=== PATIENT | female | born 1985 | race Caucasian/White ===

== ENCOUNTER 2018-08-07 11:43 | Outpatient (CLI) | payer MEDICAID ==
[2018-08-07 12:31] LABS: Hemoglobin 12.5 gm/dl (10.1-14.3); Mean Corpuscular HGB Conc 32 % (30-34); Mean Corpuscular Volume 77 fl (79-97); Platelet Count 320 K/mm3 (140-440); Red Blood Count 5.07 M/mm3 (3.65-5.03); Red Cell Distribution Width 15.2 % (13.2-15.2)
[2018-08-07 13:56] LABS: Alanine Aminotransferase 26 units/L (7-56); Albumin 4.2 g/dL (3.9-5); BUN/Creatinine Ratio 14; Blood Urea Nitrogen 10 mg/dL (7-17); Calcium 9.6 mg/dL (8.4-10.2); Hemolysis Index 6
[2018-08-07 15:46] LABS: Chol/HDL Ratio 6.43 %; HDL Cholesterol 32 mg/dL (40-59); LDL Cholesterol,Direct 157 mg/dL (50-130)
== END 2018-08-07 11:44 | disposition home or self-care (01) ==
LOC: LAB 11:43
PROVIDERS: ATTEND Internal Medicine
DX: Z13.1 Encounter for screening for diabetes mellitus (principal); I10 Essential (primary) hypertension; E66.9 Obesity, unspecified; N31.9 Neuromuscular dysfunction of bladder, unspecified; E83.41 Hypermagnesemia; E83.39 Other disorders of phosphorus metabolism
CPT/HCPCS: 36415; 80053; 80061; 82607; 83036; 84443; 85027

== ENCOUNTER 2019-01-09 11:14 | Day surgery (SDC) | payer MEDICAID ==
[2019-01-09] MEDS ORDERED: SUBLIMAZE IV PRN (13:06)
[2019-01-09] MEDS ORDERED: DILAUDID IV PRN (13:06)
--- NOTE | 2019-01-09 13:06 | Anesthesia Day of Surgery ---
Anesthesia Day of Surgery - Day of Surgery Patient Examined: Yes Patient H&P Reviewed: Yes Patient is NPO: Yes
--- NOTE | 2019-01-09 13:06 | Anesthesia Consultation ---
Anesthesia Consult and Med Hx Date of service: 01/09/19 - Airway Anesthetic Teeth Evaluation: Good ROM Head & Neck: Adequate Mental/Hyoid Distance: Adequate Mallampati Class: Class I Intubation Access Assessment: Good - Pulmonary Exam CTA: Yes - Cardiac Exam Cardiac Exam: RRR (tachycardic) - Pre-Operative Health Status ASA Pre-Surgery Classification: ASA3 Proposed Anesthetic Plan: General - Pulmonary Hx Smoking: No Hx Respiratory Symptoms: No Hx Sleep Apnea: No (LISA PRE SCREEN HIGH RISK) - Cardiovascular System Hx Hypertension: Yes Hx Heart Attack/AMI: No Hx Angina: No Hx Cardia Arrhythmia: Yes (hx tachycardia; does not follow with cardiology) - Central Nervous System Hx Neuromuscular Disorder: Yes (cauda equina syndrome; wheelchair bound since 2014) Hx Seizures: No CVA: Yes (hx TIA 09/2018) Hx Back Pain: Yes (CHRONIC,WITH LEFT LEG WEAKNESS) - Gastrointestinal Hx Gastroesophageal Reflux Disease: No - Endocrine Hx Renal Disease: Yes (hydronephrosis; neurogenic bladder) Hx Liver Disease: No Hx Insulin Dependent Diabetes: No Hx Non-Insulin Dependent Diabetes: No Hx Thyroid Disease: No - Other Systems Hx Cancer: Yes (hx ovarian ca s/p chemo and surgery in 2013) Hx Obesity: Yes (BMI 36) - Additional Comments Anesthesia Medical History Comments: Hx PONV. Tachycardia noted on exam. Patient reports past hx tachycardia which is otherwise asymptomatic. Will order preop EKG to confirm sinus rhythm.
[2019-01-09] MEDS ORDERED: GENTAMICIN 80 MG in NACL 0.9% 100 ML IV SCH (13:30)
[2019-01-09] MEDS ORDERED: DECADRON ONE (13:49)
[2019-01-09] MEDS ORDERED: ZOFRAN ONE (13:49)
[2019-01-09] MEDS ORDERED: DIPRIVAN 10 MG/ML IV ONE (13:49)
[2019-01-09] MEDS ORDERED: SUBLIMAZE ONE (13:49)
[2019-01-09] MEDS ORDERED: XYLOCAINE MPF 2% ONE (13:49)
[2019-01-09] MEDS ORDERED: VERSED IV NR (14:00)
[2019-01-09] MEDS ORDERED: TRANSDERM-SCOP TD NR (14:00)
[2019-01-09] MEDS ORDERED: LACTATED RINGERS 1,000 ML IV SCH (14:00)
[2019-01-09] MEDS ORDERED: GENTAMICIN/NS 100 MG/100 ML 100 MG/100 ML BAG IV ONE (14:03)
[2019-01-09] MEDS ORDERED: VERSED ONE (14:14)
[2019-01-09] MEDS ORDERED: DILAUDID ONE (14:15)
[2019-01-09] MEDS ORDERED: WATER FOR IRRIG STERILE IR ONE ×2 (14:39→15:06)
[2019-01-09] MEDS ORDERED: NACL 0.9% IR ONE (14:39)
--- NOTE | 2019-01-09 14:57 | Short Stay Summary ---
Short Stay Documentation Date of service: 01/09/19 - History H&P: obtained from office - Allergies and Medications Current Medications: Allergies ciprofloxacin [From Cipro] Allergy (Verified 01/09/19 13:32) Rash, SOB duloxetine [From Cymbalta] Allergy (Verified 01/09/19 13:32) Rash, SOB levetiracetam [From Keppra] Allergy (Verified 01/09/19 13:32) Rash, SOB metoclopramide [From Reglan] Allergy (Verified 01/09/19 13:32) Rash, SOB prochlorperazine [From Compazine] Allergy (Verified 01/09/19 13:32) Rash , SOB Home Medications Medication Instructions Recorded Confirmed Last Taken Type Amitriptyline [Elavil] 75 mg PO QHS 01/02/19 01/02/19 Unknown History AtorvaSTATin [Lipitor] 40 mg PO QHS 01/02/19 01/02/19 Unknown History Baclofen [Lioresal] 20 mg PO TID 01/02/19 01/02/19 Unknown History Diclofenac Potassium 50 mg PO TID 01/02/19 01/02/19 Unknown History Gabapentin [Neurontin] 800 mg PO TID 01/02/19 01/02/19 Unknown History Morphine Sulfate/Naltrexone 1 each PO DAILY 01/02/19 01/02/19 Unknown History [Embeda ER 60-2.4 mg Capsule] Tizanidine HCl [Zanaflex 4mg CAP] 8 mg PO PRN PRN 01/02/19 01/02/19 Unknown History hydroCHLOROthiazide [Hctz] 12.5 mg PO QDAY 01/02/19 01/02/19 Unknown History oxyCODONE /ACETAMINOPHEN [Percocet 1 tab PO Q6HR PRN 01/02/19 01/02/19 Unknown History 5/325] raNITIdine HCl [Zantac] 150 mg PO DAILY 01/02/19 01/02/19 Unknown History Active Medications Fentanyl (Sublimaze) 100 mcg IV Q10MIN PRN PRN Reason: Pain , Severe (7-10) Hydromorphone HCl (Dilaudid) 0.5 mg IV Q10MIN PRN PRN Reason: Pain , Severe (7-10) Lactated Ringer's (Lactated Ringers) 1,000 mls @ 100 mls/hr IV DIRECT ALFONSO Gentamicin Sulfate 80 mg/ (Sodium Chloride) 102 mls @ 200 mls/hr IV PREOP ALFONSO; Protocol Midazolam HCl (Versed) 2 mg IV PREOP NR Stop: 01/09/19 23:59 Scopolamine (Transderm-Scop) 1 each TD PREOP NR Stop: 01/09/19 23:00 - Brief post op/procedure progress note Date of procedure: 01/09/19 Pre-op diagnosis: hydronephrosis Post-op diagnosis: same Procedure: cysto, rpg, cystogram Anesthesia: GETA Surgeon: ARIANNA MARIE Estimated blood loss: none Condition: stable - Disposition Condition at discharge: Stable Disposition: DC-01 TO HOME OR SELFCARE Short Stay Discharge Plan Follow up with: ROBERT MARES MD [Primary Care Provider] - 7 Days
--- NOTE | 2019-01-09 15:46 | Post Anesthesia Evaluation ---
- Post Anesthesia Evaluation Patient Participated: Yes Airway Patent: Yes Stable Respiratory Function: Yes Nausea/Vomiting: No Temp > 96.8F: Yes Pain Manageable: Yes Adequeate Hydration: Yes Anesthesia Complications: No Block Receding Appropriately: Not Applicable Patient on Ventilator: No
--- NOTE | 2019-01-09 15:57 | Fluoroscopy Report ---
FLUOROSCOPY RETROGRADE UROGRAPHY FLUOROSCOPY CYSTOGRAM STATIC HISTORY: Incontinence FINDINGS: 25 seconds of fluoroscopy time was provided by radiology during retrograde urography and cy stogram by the urologist. 11 fluoroscopic images are presented. No filling defects are identified. Th ere is mild prominence of the right renal pelvis which probably represents an extrarenal pelvis. No c onvincing hydronephrosis or calyceal dilatation. The left retrograde pyelogram is normal. Single AP view of the bladder demonstrates no evidence for filling defect, reflux or wall abnormality . Please correlate with the procedural report by urology. IMPRESSION: Probable extrarenal pelvis in the right kidney. Unremarkable retrograde pyelograms and bladder. Signer Name: Og Tapia Jr, MD Signed: 01/09/2019 3:53 PM Workstation Name: [id number]
--- NOTE | 2019-01-09 17:18 | Cat Scan Report ---
CT abdomen pelvis wo con INDICATION / CLINICAL INFORMATION: HYDRONEPHROSIS. TECHNIQUE: All CT scans at this location are performed using CT dose reduction for ALARA by means of automated e xposure control. COMPARISON: None available. FINDINGS: Dependent atelectasis is identified in both lower lungs. ABDOMEN: The gallbladder, liver, spleen and pancreas are normal. Tiny intrarenal calculus is demonstrated in the upper pole collecting system of the left kidney. No h ydronephrosis. There is residual contrast within the right renal collecting system following retrograde studies. No visualized right renal calculi. The right renal pelvis is slightly prominent but there is normal tapering at the right ureterovesical junction. No ureteral calculi. No enlarged retroperitoneal lymph nodes. No small bowel distention. Pelvis: A normal retrocecal appendix is identified. Urinary bladder is catheterized and nondistended. No dependent fluid collections or inflammatory changes are seen in the pelvis. Stimulator device centered at the T9 level. No skeletal abnormality. IMPRESSION: 1. No evidence of ureteral calculi or hydronephrosis. 2. Left nephrolithiasis. Signer Name: Everton Spicer MD Signed: 01/09/2019 5:13 PM Workstation Name: [id number]
[2019-01-09 19:01] VITALS: BP 110/65
--- NOTE | 2019-01-09 20:09 | Operative Report ---
PREOPERATIVE DIAGNOSIS: Hydronephrosis. POSTOPERATIVE DIAGNOSIS: Hydronephrosis. PROCEDURE: Cystoscopy, bilateral retrograde pyelograms, cystogram. SURGEON: Sky Arthur MD ANESTHESIA: General. ESTIMATED BLOOD LOSS: Minimal. FLUIDS: Crystalloid. COMPLICATIONS: No complications. INDICATIONS: This patient is a 33-year-old female who presented to the office with a history of hydronephrosis and she had difficulty cathing. She has history of spinal cord injury and neurogenic bladder. She caths 4 times a day. She is in a wheelchair. She recently relocated from [place]. She had a history of hydronephrosis. She presents now for endoscopic evaluation. Risks, benefits, and complications were explained. DESCRIPTION OF PROCEDURE: The patient was taken to the operative suite, placed in a supine position. After adequate general anesthesia, placed in a dorsal lithotomy position, prepped and draped in a sterile fashion. Pancystourethroscopy was performed with 22-Kyr[place] Storz cystoscope, no acute bladder pathology. Both ureteral orifices in normal position. Obvious pain stimulator battery could be appreciated on the right side of the flank area. Bilateral retrograde pyelograms were obtained with an 8-Kyr[place]z Dewitt catheter and 8 mL of contrast. No filling defects or obstruction. The patient had some mild hydronephrosis on the right side. On cystogram, no reflux. There was some delay of contrast on the right renal pelvis, but it did slowly drain. Bladder was drained. She was extubated and taken to the recovery room, will get a CT postop. JOB# [id number] ARIADNA/LALI
== END 2019-01-09 18:00 | disposition home or self-care (01) ==
LOC: OR 11:14
PROVIDERS: ATTEND Urology
DX: N13.2 Hydronephrosis with renal and ureteral calculous obstruction (principal); N31.2 Flaccid neuropathic bladder, not elsewhere classified; N39.46 Mixed incontinence; I10 Essential (primary) hypertension
CPT/HCPCS: 52005; 74176; 74420; 74430; 82803; 82962; 93005; 93010; A4217; C1758; J1100; J1170; J1580; J2250; J2405; J2704; J3010; J7120; Q9967